=== PATIENT | male | born 1960 | race Caucasian/White ===

== ENCOUNTER 2020-04-17 11:21 | Emergency (ER) | payer OTHER ==
[2020-04-17 11:29] VITALS: BP 116/75; PULSE 88; TEMP 97.2; BMI 27.4
== END 2020-04-17 14:36 | disposition home or self-care (01) ==
LOC: JER 11:21
DX: G47.00 Insomnia, unspecified (principal)
CPT/HCPCS: 99282-25

== ENCOUNTER 2020-05-24 07:54 | Day surgery (SDC) | payer OTHER ==
[2020-05-20 12:12] VITALS: BMI 25.0
[2020-05-24 08:18] VITALS: TEMP 97.8
[2020-05-24] MEDS ORDERED: PROPOFOL 20 ML ONE ×2 (09:14)
[2020-05-24] MEDS ORDERED: LIDOCAINE HCL/PF 2% SDV 5ML VIAL ONE (09:14)
[2020-05-24 09:55] VITALS: PULSE 74
[2020-05-24 09:56] VITALS: BP 128/74
== END 2020-05-24 09:45 | disposition home or self-care (01) ==
LOC: FASU-ENDO 07:54
PROVIDERS: ATTEND Internal Medicine Gastroenterology
PROC: 0DB78ZX Excision of Stomach, Pylorus, Via Natural or Artificial Opening Endoscopic, Diagnostic (ICD-10-PCS; 2020-05-24)
PROC: 0DB98ZX Excision of Duodenum, Via Natural or Artificial Opening Endoscopic, Diagnostic (ICD-10-PCS; principal; 2020-05-24 08:57)
DX: K29.70 Gastritis, unspecified, without bleeding (principal)
CPT/HCPCS: 88305-TC; 88342-TC